=== PATIENT | female | born 1960 | race Caucasian/White ===

== ENCOUNTER 2019-08-19 08:59 | Emergency (ER) | payer OTHER ==
[~2019-08-19] VITALS: Ht 170.2 cm; Wt 61.2 kg
[~2019-08-19 08:59] MED LIST: BACTRIM DS TAB1 EACH PO; IMODIUM ADVANC1 EAC1 PO; PROZAC10 MG PO; SIMVASTATIN40 MG; ZOFRAN4 MG PO
[2019-08-19] MEDS ORDERED: ALLEGRA ALLERGY60 MG PO (09:13)
[2019-08-19 09:30] LABS: ABSOLUTE BASOPHILS 0.2 thou/uL (0.0-0.2); ABSOLUTE EOSINOPHILS 0.3 thou/uL (0.0-0.7); ABSOLUTE LYMPHOCYTES 4.2 thou/uL (0.8-5.3); ABSOLUTE MONOCYTES 0.9 thou/uL (0.0-1.2); ABSOLUTE NEUTROPHILS 5.9 thou/uL (1.6-8.1); BASOPHILS 1.5 %; EOSINOPHILS 2.8 %; HEMATOCRIT 43.3 % (37.0-47.0); HEMOGLOBIN 14.7 gm/dL (12.0-15.0); LYMPHOCYTES 36.6 %; MCH 31.6 pg (26.0-34.0); MCHC 33.9 g/dL (28.0-37.0); MCV 93.3 fL (80.0-100.0); MONOCYTES 7.5 %; MPV 8.7 fl. (7.2-11.1); NUCLEATED RBCS 0 /100WBC; PLATELET COUNT* 365 thou/uL (150-400); POLYS 51.6 %; RBC 4.64 mil/uL (4.20-5.00); RDW-CV 12.9 % (10.5-14.5); WBC 11.4 thou/uL (4.0-11.0)
[2019-08-19 09:39] LABS: CALCIUM 9.5 mg/dL (8.5-10.1); CREATININE 0.9 mg/dL (0.6-1.3); POTASSIUM 4.1 mmol/L (3.5-5.1)
[2019-08-19 09:44] LABS: ALBUMIN 4.5 g/dL (3.4-5.0); TOTAL BILIRUBIN 0.4 mg/dL (<0.1-1.0); TOTAL PROTEIN 7.3 g/dL (6.4-8.2)
[2019-08-19 11:39] LABS: URINE BILIRUBIN 2+ (Negative); URINE BLOOD NEGATIVE (Negative); URINE CLARITY CLEAR; URINE COLOR YELLOW; URINE GLUCOSE-RANDOM NEGATIVE (Negative); URINE KETONES TRACE (Negative); URINE LEUKOCYTES-REFLEX NEGATIVE (Negative); URINE NITRITE-REFLEX NEGATIVE (Negative); URINE PROTEIN NEGATIVE (Negative); URINE SPECIFIC GRAVITY <= 1.005 (1.005-1.030); URINE UROBILINOGEN 0.2 E.U./dl (0.2-1.0)
[2019-08-19 11:40] LABS: ICTOTEST (BILI CONFIRMATORY) Negative (Negative)
[2019-08-19 13:07] LABS: CASTS None Seen /LPF (None Seen); CRYSTALS None Seen /LPF (None Seen); MUCUS None Seen strn/LPF (None Seen); SQUAMOUS 0-3 Few /LPF (0-3); URINE RBC 0-2 Rare /HPF (0-2); URINE WBC-REFLEX None Seen /HPF (0-5)
--- NOTE | 2019-08-19 14:34 | 2DMMODE ---
[place] [address] 2 D/M-MODE ECHOCARDIOGRAM Name: CHLOE BARDALES Room: [facility]#: [id number] Admission: 08/19/19 Attend Phys: Discharge: Date of : 56 Date of Service: 08/19/19 1434 Report #: [id number] THIS REPORT FOR: //name// APPROVED REPORT Study performed: 08/19/2019 13:07:26 EXAM: Comprehensive 2D, Doppler, and color-flow Echocardiogram Patient Location: In-Patient Room #: er Status: routine BSA: 1.71 HR: 83 bpm BP: 114/90 mmHg Rhythm: NSR Other Information Study Quality: Good Indications Bradycardia Syncope 2D Dimensions IVSd: 9.85 (7-11mm) LVOT Diam: 18.92 (18-24mm) LVDd: 46.00 mm PWd: 8.54 (7-11mm) Ascending Ao: 28.18 (22-36mm) LVDs: 26.05 (25-40mm) Aortic Root: 29.88 mm Volumes Left Atrial Volume (Systole) LA ESV Index: 27.50 mL/m2 Aortic Valve AoV Peak Aung.: 1.10 m/s AO Peak Gr.: 4.84 mmHg LVOT Max P.06 mmHg AO Mean Gr.: 2.67 mmHg LVOT Mean P.15 mmHg LVOT Max V: 1.12 m/s AO V2 VTI: 23.46 cm LVOT Mean V: 0.66 m/s GIUSEPPE (VTI): 2.84 cm2 LVOT V1 VTI: 23.73 cm Mitral Valve E/A Ratio: 0.76 MV Decel. Time: 237.24 [place] [address] 2 D/M-MODE ECHOCARDIOGRAM Name: CHLOE BARDALES Room: [facility]#: [id number] Admission: 08/19/19 Attend Phys: Discharge: Date of : 56 Date of Service: 08/19/19 1434 Report #: [id number] MV E Max Aung.: 0.68 m/s MV PHT: 68.80 ms MVA (PHT): 3.20 cm2 TDI E/Lateral E': 4.86 E/Medial E': 5.23 Medial E' Aung.: 0.13 m/s Lateral E' Aung.: 0.14 m/s Pulmonary Valve PV Peak Aung.: 0.88 m/s PV Peak Gr.: 3.08 mmHg Left Ventricle The left ventricle is normal size. There is normal LV segmental wall motion. There is normal left ventricular wall thickness. Left ventricular systolic function is normal. LVEF is 60-65%. Grade I - abnormal relaxation pattern. Right Ventricle The right ventricle is normal size. The right ventricular systolic function is normal. Atria The left atrium size is normal. The right atrium size is normal. Aortic Valve Mild aortic valve sclerosis. No aortic regurgitation is present. There is no aortic valvular stenosis. Mitral Valve The mitral valve is normal in structure. Trace mitral regurgitation. No evidence of mitral valve stenosis. Tricuspid Valve The tricuspid valve is normal in structure. Unable to assess PA pressure. Trace tricuspid regurgitation. Pulmonic Valve The pulmonary valve is normal in structure. There is no pulmonic valvular regurgitation. Great Vessels The aortic root is normal in size. IVC is normal in size and collapses >50% [place] [address] 2 D/M-MODE ECHOCARDIOGRAM Name: CHLOE BARDALES Room: [facility]#: [id number] Admission: 08/19/19 Attend Phys: Discharge: Date of : 56 Date of Service: 08/19/19 1434 Report #: [id number] Pericardium There is no pericardial effusion. <Conclusion> The left ventricle is normal size. There is normal left ventricular wall thickness. Left ventricular systolic function is normal. LVEF is 60-65%. Grade I - abnormal relaxation pattern. There is normal LV segmental wall motion. Trace mitral regurgitation. Trace tricuspid regurgitation. IVC is normal in size and collapses >50% with inspiration. <ELECTRONICALLY SIGNED> By: Paulie Contreras MD, FACC 08/19/19 1434 1434 1434 Paulie Contreras MD, FACC /INF
[2019-08-19 15:19] VITALS: BP 166/81
--- NOTE | 2019-08-19 15:40 | EKG ---
[place] [address] ELECTROCARDIOGRAM REPORT Name: CHLOE BARDALES Room: [facility]#: [id number] Admission: 08/19/19 Attend Phys: Discharge: Date of : 56 Report #: [id number] THIS REPORT FOR: //name// [facility] ED Test Date: 2019-08-19 Test Time: 10:08:12 Pat Name: CHLOE BARDALES Department: Room: Gender: F Charrer: : 1960 Requested By: Delfin Rios Order Number: [id number] MD: Paulie Contreras Measurements Intervals [place] Rate: 47 P: 47 [place]: 148 QRS: 19 QRSD: 96 T: 43 QT: 522 QTc: 462 Interpretive Statements Sinus bradycardia Low voltage, precordial leads Baseline wander in lead(s) II,III,aVF,V2,V6 Compared to ECG 10/25/2007 17:52:05 Low QRS voltage now present Sinus rhythm no longer present Sinus arrhythmia no longer present Electronically Signed On 08-19-2019 15:40:43 [employer] by Paulie Contreras [email or web address] <ELECTRONICALLY SIGNED> By: Paulie Contreras MD, FACC 08/19/19 1540 1008 1008 Paulie Contreras MD, FAC /EPI
== END 2019-08-19 15:19 | disposition short-term general hospital (02) ==
LOC: M.ERS 08:59
PROVIDERS: Emergency Medicine Emergency Medical Services
DX: M54.9 Dorsalgia, unspecified (principal); R55 Syncope and collapse; R11.2 Nausea with vomiting, unspecified; E78.00 Pure hypercholesterolemia, unspecified; F32.9 Major depressive disorder, single episode, unspecified; Z87.442 Personal history of urinary calculi; Z88.6 Allergy status to analgesic agent